=== PATIENT | female | born 1960 | race Caucasian/White ===

== ENCOUNTER 2016-12-13 11:57 | Observation (INO) | payer MEDICAID ==
[~2016-12-13] VITALS: Ht 160 cm; Wt 94.7 kg
[2016-12-13 12:02] VITALS: Ht 160 cm; Wt 94.7 kg
[2016-12-13] MEDS ORDERED: ASPIRIN 325 MG TAB PO STA (12:24)
[2016-12-13] MEDS ORDERED: NITROGLYCERIN (SL) 0.4 MG TAB SL PRN (12:30)
--- NOTE | 2016-12-13 13:02 | RADRPT ---
PROCEDURE: XR Chest. CLINICAL INDICATION: Chest pain. TECHNIQUE: Single frontal view of the chest was obtained. COMPARISON: None. FINDINGS: This is a partially expiratory study. Cardiomediastinal silhouette appears normal Pulmonary vasculature appears normal. There is bibasilar subsegmental atelectasis, right greater than left. Costophrenic angles are well defined. The osseous elements appear intact. IMPRESSION: 1. Bibasilar subsegmental atelectasis partially expiratory study.. 2. No confluent airspace process identified RPTAT: [facility] Physician Marky Date Time Electronically viewed and signed by Physician Marky on 12/13/2016 13:01 /
[2016-12-13 13:05] LABS: ADD SCAN DIFF NO
[2016-12-13 13:06] LABS: BASOPHILS % 0.5 % (0.0-2.0); EOSINOPHILS # 0.1 10^3/ul (0.0-0.5); EOSINOPHILS % 1.7 % (0.0-7.0); HEMATOCRIT 38.2 % (37.0-47.0); HEMOGLOBIN 12.6 g/dl (12.0-16.0); LYMPHOCYTES # 2.4 10^3/ul (0.8-2.9); LYMPHOCYTES % 30.5 % (15.0-51.0); MEAN CORPUSCULAR HEMOGLOBIN 29.6 pg (29.0-33.0); MEAN CORPUSCULAR VOLUME 89.9 fl (82.0-101.0); MEAN PLATELET VOLUME 9.2 fl (7.4-10.4); MONOCYTE # 0.6 10^3/ul (0.3-0.9); NEUTROPHIL # 4.5 10^3/ul (1.6-7.5); NEUTROPHILS % 58.8 % (39.0-77.0); PLATELET COUNT 285 10^3/UL (140-415); RED BLOOD COUNT 4.25 10^6/ul (4.20-5.40); RED CELL DISTRIBUTION WIDTH 12.6 % (11.5-14.5); WHITE BLOOD COUNT 7.7 10^3/ul (4.8-10.8)
[2016-12-13 13:15] LABS: INR 0.98
[2016-12-13 13:16] LABS: PARTIAL THROMBOPLASTIN TIME 24.7 Sec (25.0-35.0)
[2016-12-13 13:18] LABS: D-DIMER 1721.67 ng/ml (<460)
[2016-12-13 13:20] LABS: ALBUMIN 3.9 g/dl (3.3-4.9); CHLORIDE 104 mmol/L (97-110)
[2016-12-13 13:21] LABS: SODIUM 146 mmol/L (135-144)
[2016-12-13 13:23] LABS: ALBUMIN/GLOBULIN RATIO 1.25; ALKALINE PHOSPHATASE 105 IU/L (42-121); ANION GAP 17 (8-16); ASPARTATE AMINO TRANSFERASE 26 IU/L (15-46); BILIRUBIN,INDIRECT 0.7 mg/dl (0-1.1); BILIRUBIN,TOTAL 0.7 mg/dl (0.2-1.3); BLOOD UREA NITROGEN 11 mg/dl (7-20); CARBON DIOXIDE 29 mmol/L (21-31)
[2016-12-13 13:24] LABS: ALANINE AMINOTRANSFERASE 33 IU/L (13-69); CALCIUM 9.2 mg/dl (8.4-10.2); CREATINE KINASE 60 IU/L (23-200); GLUCOSE 133 mg/dl (70-220)
[2016-12-13 13:31] LABS: CK-MB 0.32 ng/ml (0.0-2.4)
[2016-12-13 13:32] LABS: B-TYPE NATRIURETIC PEPTIDE 48 PG/ML (0-125)
[2016-12-13 14:14] LABS: TROPONIN-I < 0.010 ng/ml (0.00-0.12)
[2016-12-13] MEDS ORDERED: ACETAMINOPHEN 325 MG TAB PO PRN (14:30)
[2016-12-13] MEDS ORDERED: ONDANSETRON 4 MG INJ IV PRN ×2 (14:30→18:30)
--- NOTE | 2016-12-13 14:33 | ERA ---
ER Documentation Chief Complaint Date/Time DATE: 12/13/16 TIME: 14:28 Chief Complaint CHEST PAIN RADIATING TO LT ARM X 1 WEEK WITH SOB WHEN LYING DOWN HPI This is a 56-year-old Slovenian-speaking female with no past medical history and no past surgical history that presents to the emergency department complaining of left substernal chest pain that has been intermittent for the past 7 days. The patient indicates that the chest pain will sporadically occur multiple times throughout the day, last for roughly 20 minutes and will also radiate to her left arm. She is right-handed dominant. She denies any numbness or tingling of her left or right upper extremity. She had no associated symptoms of nausea vomiting or diaphoresis. The patient also indicates that when she lies supine she feels short of breath with paroxysmal nocturnal dyspnea. She denies any swelling of her lower extremities. She denies any recent travel or prolonged immobilization. She has no shortness of breath with exertion. ROS All systems reviewed and are negative except as per history of present illness. Medications Home Meds No Active Prescriptions or Reported Meds Allergies Allergies: Coded Allergies: No Known Allergy (Unverified , 12/13/16) PMhx/Soc Hx Alcohol Use: No Hx Substance Use: No Hx Tobacco Use: No Physical Exam Vitals Vital Signs Date Time Temp Pulse Resp B/P Pulse Ox O2 Delivery O2 Flow Rate FiO2 12/13/16 12:02 98.1 97 18 150/73 95 Physical Exam Constitutional:Well-developed. Well-nourished. HEENT:Normocephalic. Atraumatic.Pupils were equal round reactive to light. Moist mucous membranes.No tonsillar exudates. Neck: No nuchal rigidity. No lymphadenopathy. No posterior cervical spine tenderness or step-offs. Respiratory: Not using accessory muscles of respiration.Lungs were clear to auscultation bilaterally. No rhonchi. No rales. No wheezing. Cardiovascular: Regular rate regular rhythm.No murmurs. No rubs were appreciated.S1, S2 normal. Distal pulses are palpable 2+ bilaterally. GI: Abdomen was soft. Nontender. Non Distended. No pulsatile abdominal masses or bruits. No rebound. No guarding. Bowel sounds were present and normal. Muscle skeletal: Full range of motion of both the upper and lower extremities bilaterally.Normal muscle tone.No assymetrical calf tenderness or swelling. Skin: No petechia, no purpura. No lesions on the palms or the soles of the feet. No maculopapular rash. NEURO: Patient was alert, awake, orientated x3.No facial droop. Gait observed and normal with no ataxia.Speech had regular rate and rhythm. No focal neurological deficits. Result Diagram: 12/13/16 1256 12/13/16 1256 Results 24 hrs Laboratory Tests Test 12/13/16 12:56 Activated Partial Thromboplast Time 24.7Sec Alanine Aminotransferase (ALT/SGPT) 33IU/L Albumin 3.9g/dl Albumin/Globulin Ratio 1.25 Alkaline Phosphatase 105IU/L Anion Gap 17 Aspartate Amino Transf (AST/SGOT) 26IU/L B-Type Natriuretic Peptide 48PG/ML Basophils # 0.010^3/ul Basophils % 0.5% Blood Urea Nitrogen 11mg/dl Calcium Level 9.2mg/dl Carbon Dioxide Level 29mmol/L Chloride Level 104mmol/L Creatine Kinase 60IU/L Creatine Kinase Index 0.5 Creatinine 0.70mg/dl Creatinine Kinase MB (Mass) 0.32ng/ml D-Dimer 1721.67ng/ml D-Dimer Comment Direct Bilirubin 0.00mg/dl Eosinophils # 0.110^3/ul Eosinophils % 1.7% Globulin 3.10g/dl Glucose Level 133mg/dl Hematocrit 38.2% Hemoglobin 12.6g/dl INR International Normalized Ratio 0.98 Indirect Bilirubin 0.7mg/dl Lymphocytes # 2.410^3/ul Lymphocytes % 30.5% Mean Corpuscular Hemoglobin 29.6pg Mean Corpuscular Hemoglobin Concent 33.0g/dl Mean Corpuscular Volume 89.9fl Mean Platelet Volume 9.2fl Monocytes # 0.610^3/ul Monocytes % 8.0% Neutrophils # 4.510^3/ul Neutrophils % 58.8% Nucleated Red Blood Cells # 0.010^3/ul Nucleated Red Blood Cells % 0.0/100WBC Platelet Count 00952^3/UL Potassium Level 4.0mmol/L Prothrombin Time 13.0Sec Prothrombin Time Ratio 1.0 Red Blood Count 4.2510^6/ul Red Cell Distribution Width 12.6% Sodium Level 146mmol/L Total Bilirubin 0.7mg/dl Total Protein 7.0g/dl Troponin I < 0.010ng/ml White Blood Count 7.710^3/ul Current Medications Medications (Trade) Dose Ordered Sig/Yessy Route PRN Reason Start Time Stop Time Status Last Admin Dose Admin Aspirin (Aspirin) 325 mg ONCE STAT PO 12/13/16 12:24 12/13/16 12:25 DC 12/13/16 12:52 Nitroglycerin (Nitroglycerin (Sl Tab) 0.4 Mg) 1 tab Q5M UP TO 3 DOSES PRN SL CHEST PAIN 12/13/16 12:30 12/13/16 12:52 Procedures/MDM The patient presented to the emergency department with chest pain. My clinical evaluation and workup was to distinguish minor causes of chest pain from acute life threatening conditions such as myocardial infarction, pulmonary embolism, aortic dissection, esophageal rupture, cardiac tamponade. The patient was placed on a cardiac catheterization technician and continuous pulse oximetry. IV access established by nursing staff. Patient was given 325 mg of aspirin p.o. and sublingual nitroglycerin. 12 Lead EKG tracing ordered and reviewed by myself showed: Normal sinus rhythm of 100 bpm and no arrhythmia. NE interval normal. QRS duration normal. No ST segment elevation No ST segment depression. No changes consistent with acute ischemia. The patient was a low pretest probability according to the well's criteria for pulmonary embolism. I obtained a d-dimer which was elevated and therefore obtained a CT scan of the chest which showed no evidence of a pulmonary embolism. The patient will be admitted for serial 12-lead EKG tracings and cardiac set of enzymes to the hospitalist Dr. Harris. Departure Diagnosis: Primary Impression: Chest pain Qualified Code: R07.9 - Chest pain, unspecified type Condition: Serious AMYJUAN DIXONA Dec 13, 2016 14:32
[2016-12-13] MEDS ORDERED: IOHEXOL 300MG/ML 150 ML BTL ONE (15:02)
[2016-12-13] MEDS ORDERED: SOD CHLORIDE 0.9% 100 ML ONE (15:02)
--- NOTE | 2016-12-13 15:27 | RADRPT ---
PROCEDURE: CT pulmonary angiogram. CLINICAL INDICATION: Chest pain. Shortness of breath. TECHNIQUE: CT scan of the chest and CT pulmonary angiogram was performed on a multi-slice CT [place]. High-resolution thin slice coronal and sagittal imaging was obtained from the axial source imag es. The patient was examined following the uncomplicated intravenous administration of 120 of Omnip aque-300. The images were reviewed on a PACS workstation. Three dimensional reformatting was used as part of interpretation. The total exam CTDI equals 26.5 and the total exam DLP equals 495.17 mGy-c m. COMPARISON: Chest radiograph 12/13/2016 FINDINGS: CT Pulmonary Angiogram: Breathing artifact significant limits evaluation of the pulmonary arteries, particular in the lung b ases. There is no evidence of central pulmonary embolism. There is no evidence of left lumbar pulm onary embolism. The pulmonary arteries are not well visualized distal to these branches. The main pulmonary artery does not appear enlarged. There is no evidence of right heart strain. The aorta is adequately opacified to exclude aneurysm, dissection, or intramural hematoma. Scattere d atherosclerotic calcifications are present without other significant aortic pathology. Incidental note is made of a common origin of the right brachiocephalic and left common carotid arteries, a ty pical variant. CT Chest: There are no enlarged mediastinal, axillary, or hilar lymph nodes. Heart size is at the upper limit s of normal there is no pericardial effusion or pericardial thickening. Breathing artifact significant limits evaluation of the pulmonary parenchyma. There is a small left pleural effusion. There is moderate bibasilar atelectasis. No obvious confluent or lobar infiltra te is seen. Evaluation for pulmonary nodules significantly limited. There is no pneumothorax. The central tracheobronchial tree is patent. Gallstones are identified within the gallbladder. The remainder of the partially imaged subdiaphrag matic contents are grossly within normal limits. Evaluation of the ribs is limited by breathing artifact. The bones are grossly intact. IMPRESSION: 1. Study significant limited by breathing artifact. There is no evidence of central pulmonary embo lism. 2. Atherosclerotic vascular disease without evidence of other aortic pathology. 3. Small left pleural effusion and moderate bibasilar atelectasis. 4. Cholelithiasis. RPTAT: KK .Alli Carnes MD, MD Date Time Electronically viewed and signed by .Alli Carnes MD, MD on 12/13/2016 15:26 .B/
[2016-12-13] MEDS: FUROSEMIDE 20 MG INJ IV SCH (18:33)
[2016-12-13 18:39] VITALS: BP 117/72; PULSE 73; RESP 18
[2016-12-13] MEDS: AZITHROMYCIN 500MG/NS (PMX) 250 ML IVPB SCH (18:55)
[2016-12-13 20:00] VITALS: BP 121/70; RESP 18
[2016-12-13 20:31] VITALS: PULSE 79
[2016-12-13] MEDS: FAMOTIDINE 20 MG TAB PO SCH (21:10)
[2016-12-13] MEDS: DOCUSATE SODIUM 100 MG CAP PO SCH (21:10)
--- NOTE | 2016-12-13 22:56 | RADRPT ---
PROCEDURE: Ultrasound of the bilateral lower extremity venous system. CLINICAL INDICATION: Bilateral leg pain and swelling, deep venous thrombosis TECHNIQUE: Dickens scale with and without compression, color doppler, spectral doppler of the venous system of the bilateral lower extremities was performed. Venous augmentation maneuvers were utilized . COMPARISON: No prior studies are available for comparison. FINDINGS: RIGHT: Common femoral vein: Patent. Superficial femoral vein: Patent. Popliteal vein: Patent. Calf veins: Patent. No soft tissue abnormalities are identified. LEFT: Common femoral vein: Patent. Superficial femoral vein: Patent. Popliteal vein: Patent. Calf veins: Patent. No soft tissue abnormalities are identified. IMPRESSION: No evidence of a deep vein thrombosis within the bilateral lower extremities. RPTAT: AADD .Dinh Anne MD, Date Time Electronically viewed and signed by .Dinh Anne MD, on 12/13/2016 22:56 .B/
[2016-12-14] VITALS (12 sets, daily range): BP systolic 97–128; BP diastolic 54–77; PULSE 69–81; RESP 18–19
[2016-12-14 00:11] LABS: CK-MB 0.35 ng/ml (0.0-2.4)
[2016-12-14 00:14] LABS: TROPONIN-I 0.015 ng/ml (0.00-0.12)
[2016-12-14] MEDS: FUROSEMIDE 20 MG INJ IV SCH ×2 (05:43→17:16)
--- NOTE | 2016-12-14 08:14 | HP ---
DATE OF ADMISSION: 12/13/2016 PRESENTING COMPLAINT: Chest pain. HISTORY OF PRESENTING COMPLAINT: This is a 56-year-old female with basically no medical history, wh o presented to the emergency room with mid substernal sharp pain intermittently over the last couple of days. The pain seems to come and go and radiates to her left upper extremity. There is no diap horesis. No numbness or tingling, but it is associated with shortness of breath, as well as dyspnea on exertion. There is no lower extremity edema. There is no history of blood clots or pulmonary e mbolism. PAST MEDICAL HISTORY: Essentially negative. SURGICAL HISTORY: Negative as well. ALLERGIES: NO KNOWN DRUG ALLERGIES. SOCIAL HISTORY: Denies tobacco, alcohol or illicit drug use. FAMILY HISTORY: Positive for high blood pressure. REVIEW OF SYSTEMS: Denies fever, denies abdominal pain, denies nausea, denies passing out episodes, denies focal deficits, denies headache. All other systems were reviewed and negative. PHYSICAL EXAMINATION: VITAL SIGNS: Temperature 98.1, pulse 97, respirations 18, blood pressure 150/73, saturations 95% on room air. GENERAL: Alert and oriented, in no distress. HEENT: Head is normocephalic. Pupils are equal and reactive. Mucous membranes are moist. NECK: Supple, without adenopathy. CHEST: Clear to auscultation. CARDIOVASCULAR: S1, S2. No murmurs. ABDOMEN: Soft, nontender, nondistended. Normal active bowel sounds. EXTREMITIES: There was no focal neurologic deficit. SKIN: Devoid of rash or jaundice. Radial pulses are equal and regular. PSYCHIATRIC: The patient was calm and cooperative with the exam. LABORATORY VALUES: Basically unremarkable, save for a serum sodium of 146. Of note is that her cre atinine kinase was normal. Her D-dimer was elevated, however, at 1,721, but her first troponin was negative. Hemoglobin and hematocrit were unremarkable and the WBC count was normal as well. In the emergency room she was given aspirin and nitroglycerin. IMAGING: A chest x-ray, which I reviewed, did not show any acute cardiopulmonary abnormalities. EK G showed normal sinus rhythm with a rate of 100 beats per minute, without any ST elevations concerni ng acute ischemia. She undergo a CT angiogram of her chest to rule out a possible PE in the setting of an elevated D-dimer, as well as chest pain associated with shortness of breath, and this has com e back as showing study significantly limited by breathing artifact. No evidence of central pulmona ry embolism, but there is a small effusion, as well as moderate bibasilar atelectasis and chol elithiasis. IMPRESSION: This is a 56-year-old female with no real past medical history, who presents with short ness of breath and CT findings of a small left pleural effusion, as well as bibasilar atelectasis an d is being admitted as follows: 1. Shortness of breath. Rule out mild congestive heart failure exacerbation (newly diagnosed CHF). 2. Elevated D-dimer, for which a pulmonary embolism has been ruled out. Rule out a lower extremity deep venous thrombosis as well. 3. Rule out an acute coronary syndrome. 4. Rule out underlying infection. 5. Rule out bilateral pneumonia, presenting with like atelectasis on CT. PLAN OF CARE: Admit her to telemetry floor and begin investigations to support her admission diagnos es. She would benefit from an echocardiogram. I will commence gentle diuresis and further intervent ions will depend on how she responds to the above measures. Prophylaxis will be with Lovenox and Pe pcid. For further information and clarification, please review the patient's chart and my orders. Evaluation time has been about 45 minutes. Dictated By: EDSON SONG MD, BA/MEEK Conf#: [id number] DID#: [id number]
[2016-12-14 08:27] LABS: ADD SCAN DIFF NO
[2016-12-14] MEDS: FAMOTIDINE 20 MG TAB PO SCH ×2 (08:35→20:33)
[2016-12-14] MEDS: ASPIRIN (EC) 81 MG TAB PO SCH (08:35)
[2016-12-14] MEDS: DOCUSATE SODIUM 100 MG CAP PO SCH ×2 (08:35→20:33)
[2016-12-14] MEDS: ENOXAPARIN 40 MG/0.4 ML SYG SC SCH (08:39)
[2016-12-14 08:40] LABS: POTASSIUM 3.9 mmol/L (3.5-5.1)
[2016-12-14 08:42] LABS: CREATINE KINASE 63 IU/L (23-200)
[2016-12-14 08:43] LABS: CREATININE 0.67 mg/dl (0.44-1.00)
[2016-12-14 08:44] LABS: CALCIUM 9.1 mg/dl (8.4-10.2); CHOL/HDL RATIO 5.7 RATIO; MAGNESIUM 1.9 mg/dl (1.7-2.5)
[2016-12-14 08:53] LABS: CK-MB 0.39 ng/ml (0.0-2.4)
[2016-12-14 09:13] LABS: TROPONIN-I < 0.012 ng/ml (0.00-0.12)
[2016-12-14 09:45] LABS: BASOPHIL # 0.1 10^3/ul (0.0-0.1); BASOPHILS % 0.9 % (0.0-2.0); EOSINOPHILS # 0.2 10^3/ul (0.0-0.5); EOSINOPHILS % 2.9 % (0.0-7.0); HEMATOCRIT 40.2 % (37.0-47.0); HEMOGLOBIN 12.7 g/dl (12.0-16.0); LYMPHOCYTES # 3.1 10^3/ul (0.8-2.9); LYMPHOCYTES % 39.1 % (15.0-51.0); MEAN CORPUSCULAR HEMOGLOBIN 28.7 pg (29.0-33.0); MEAN CORPUSCULAR HGB CONC 31.6 g/dl (32.0-37.0); MEAN PLATELET VOLUME 9.9 fl (7.4-10.4); MONOCYTE # 0.7 10^3/ul (0.3-0.9); MONOCYTES % 8.7 % (0.0-11.0); NEUTROPHIL # 3.8 10^3/ul (1.6-7.5); NEUTROPHILS % 48.1 % (39.0-77.0); PLATELET COUNT 306 10^3/UL (140-415); RED BLOOD COUNT 4.42 10^6/ul (4.20-5.40); RED CELL DISTRIBUTION WIDTH 12.9 % (11.5-14.5)
[2016-12-14] MEDS ORDERED: LEVO25TA53 PO (15:28)
[2016-12-14] MEDS ORDERED: DOCU-216 PO (15:28)
[2016-12-14] MEDS ORDERED: ATOR20TA65 PO (15:28)
[2016-12-14] MEDS ORDERED: POTA8CAP PO (15:28)
[2016-12-14] MEDS ORDERED: FAMO20TA18 PO (15:28)
[2016-12-14] MEDS ORDERED: LEVO750T25 PO (15:28)
[2016-12-14] MEDS ORDERED: ASPI-664 PO (15:28)
[2016-12-14] MEDS ORDERED: FURO20TA3 PO (15:30)
--- NOTE | 2016-12-14 15:34 | PDOCDIS ---
Discharge Instructions DIAGNOSIS Discharge Diagnosis: Bronchitis , Chest Pain CONDITION Patient Condition: Stable HOME CARE INSTRUCTIONS: Diet Instructions: Low Fat /CholesterolSpecial Diet: 1800 Calorie diet ACTIVITY: Activity Restrictions: Slowly Increase Activity Rest between Activity OTHER ORDERS: Other Orders: Followup with your primary doctor within the next 1 week. If you don't have one please let someone know, we can give you resources that may help you pick one. You may also call your insurance company to assign one to you. Review your medication list with your nurse before leaving and if you need new prescriptions please let your nurse know. I may have made changes to your home medications or given you new prescriptions , please let your primary doctor know as well. Stay compliant with your medications and report any side effects to your PCP or pharmacist. Return to the ER if you have any concerns and cannot reach your doctors or call your insurance company, they usually have a nurse that can help you. EDSON SONG. Dec 14, 2016 15:34
[2016-12-14] MEDS: AZITHROMYCIN 500MG/NS (PMX) 250 ML IVPB SCH (18:21)
[2016-12-14] MEDS ORDERED: CEFTRIAXONE 1 GM/50 ML (PMX) 50 ML IVPB SCH (20:00)
[2016-12-14] MEDS ORDERED: ATORVASTATIN 20 MG TAB PO SCH (21:00)
[2016-12-15] VITALS (9 sets, daily range): BP systolic 112–141; BP diastolic 70–82; PULSE 71–92; RESP 18–20
[2016-12-15] MEDS: FUROSEMIDE 20 MG INJ IV SCH (05:58)
[2016-12-15] MEDS ORDERED: LEVOTHYROXINE 25 MCG TAB PO SCH (06:00)
[2016-12-15] MEDS: DOCUSATE SODIUM 100 MG CAP PO SCH (08:28)
[2016-12-15] MEDS: ASPIRIN (EC) 81 MG TAB PO SCH (08:28)
[2016-12-15] MEDS: FAMOTIDINE 20 MG TAB PO SCH (08:28)
[2016-12-15] MEDS: ENOXAPARIN 40 MG/0.4 ML SYG SC SCH (08:32)
[2016-12-15 09:55] LABS: ADD SCAN DIFF NO
[2016-12-15 09:59] LABS: BASOPHIL # 0.1 10^3/ul (0.0-0.1); BASOPHILS % 0.7 % (0.0-2.0); EOSINOPHILS # 0.3 10^3/ul (0.0-0.5); EOSINOPHILS % 3.8 % (0.0-7.0); HEMATOCRIT 43.7 % (37.0-47.0); HEMOGLOBIN 14.1 g/dl (12.0-16.0); LYMPHOCYTES # 2.1 10^3/ul (0.8-2.9); LYMPHOCYTES % 30.2 % (15.0-51.0); MEAN CORPUSCULAR HEMOGLOBIN 28.9 pg (29.0-33.0); MEAN CORPUSCULAR HGB CONC 32.3 g/dl (32.0-37.0); MEAN CORPUSCULAR VOLUME 89.5 fl (82.0-101.0); MEAN PLATELET VOLUME 9.1 fl (7.4-10.4); MONOCYTE # 0.5 10^3/ul (0.3-0.9); MONOCYTES % 7.2 % (0.0-11.0); NEUTROPHILS % 57.8 % (39.0-77.0); PLATELET COUNT 359 10^3/UL (140-415); RED BLOOD COUNT 4.88 10^6/ul (4.20-5.40); RED CELL DISTRIBUTION WIDTH 12.5 % (11.5-14.5); WHITE BLOOD COUNT 6.8 10^3/ul (4.8-10.8)
[2016-12-15 10:13] LABS: CREATININE 0.69 mg/dl (0.44-1.00)
[2016-12-15 10:14] LABS: CALCIUM 9.7 mg/dl (8.4-10.2)
--- NOTE | 2016-12-15 15:40 | RADRPT ---
Echocardiogram Report Patient Name: ZOË PLATT Gender: Female Date: 1960 Study Date: 15-Dec-2016 Cosmetic Sales Advisor: [facility] Location: 522 Ref. Physician: EDSON SONG Quality: Technically Difficult Study Procedures: Transthoracic echocardiogram with complete 2D, M-Mode, and doppler examination. Indications: Chest Pain. 2D/M Mode Doppler Measurement Value Normal Ranges Measurement Value Normal Ranges LVIDd 2D 5.1 3.5 - 5.6 cm AV Peak Jhon 0.8 m/sec LVPWd 2D 1.3 0.6 - 1.1 cm AV Peak PG 2.6 mmHg IVSd 2D 1.3 0.6 - 1.1 cm LVOT Peak Jhon 0.6 m/sec MV E Peak Jhon 0.5 m/sec MV A Peak Jhon 0.7 m/sec MV E/A 0.8 MV Decel Time 182 msec MV Decel Gregg 3 MV E/A 0.8 Findings Left Ventricle: Overall, normal left ventricular systolic function. Not all segments visualized. Normal left ventricular cavity size. Mild concentric left ventricular hypertrophy. Ejection fraction is visually estimated at 55 %. Tissue Doppler/Mitral Doppler indices are consistent with impaired relaxation (Stage I diastolic dysfunction). Right Ventricle: Not well visualized. Left Atrium: The left atrium is normal in size. Right Atrium: Not well visualized. Mitral Valve: Mild mitral leaflet calcification. Trace mitral regurgitation. Aortic Valve: Aortic valve not well visualized. Trileaflet aortic valve. Tricuspid Valve: Tricuspid valve not well visualized. There is trace tricuspid regurgitation. Pulmonic Valve: There is trace pulmonic regurgitation. Pericardium: Normal pericardium with no significant pericardial effusion. Aorta: Normal aortic root. IVC: Normal size and normal respiratory collapse consistent with normal right atrial pressure. Conclusions 1.Overall, normal left ventricular systolic function. Not all segments visualized. Normal left ventricular cavity size. Mild concentric left ventricular hypertrophy. Ejection fraction is visually estimated at 55 %. Tissue Doppler/Mitral Doppler indices are consistent with impaired relaxation (Stage I diastolic dysfunction). 2.Mild mitral leaflet calcification. Trace mitral regurgitation. 3.Aortic valve not well visualized. Trileaflet aortic valve. 4.Tricuspid valve not well visualized. There is trace tricuspid regurgitation. Electronically Signed By: Theodore Aguilar 15-Dec-2016 15:39:45 -0800 Patient Name: ZOË PLATT Study Date: 15-Dec-2016 [id number]
--- NOTE | 2016-12-16 07:18 | DS ---
DATE OF ADMISSION: 12/13/2016 DATE OF DISCHARGE: 12/15/2016 PRESENTING COMPLAINT: Chest pain. ADMISSION DIAGNOSES: 1. Shortness of breath, rule out newly diagnosed congestive heart failure. 2. Elevated D-dimer, status post sepsis normal CT angiogram. 3. Rule out acute coronary syndrome. 4. Rule out underlying infection. 5. Rule out bilateral pneumonia presenting with atelectasis on CAT scan. CONSULTANTS ON THE CASE: None. INTERVENTIONS: The patient first had a chest x-ray when she first came in and it showed bibasilar a telectasis without confluent airspace disease. Lab work also came back positive with a D-dimer of 1 721 and the patient had normal renal function. There was concern for possible thrombus formation. The patient underwent a CT angiogram of the chest. This showed a limited study, but no evidence of central pulmonary embolism. It did show atherosclerosis, a small right pleural effusion, moderate b ibasilar atelectasis, and cholelithiasis without cholecystitis. She also underwent lower extremity Dopplers bilaterally that showed no evidence of DVT within the bilateral lower extremities. She was worked up laboratory lawrence and she was found to have an elevated hemoglobin A1c of 6.3, dyslipidemia with triglyceride level of 150, total cholesterol of 206, a low HDL of 36. Her TSH was elevated at 4.19. At this time, her pain is completely reproducible with palpation on her chest and is exacerb ated by deep inspiration. Hence, the patient's pain is less likely cardiac and more pulmonary lawrence and is thought to be more infectious than due to a ____ condition. Based on that, she was started o n antibiotic therapy, which she has tolerated well. It is my opinion that the patient is stable at this time for outpatient followup as most ____ causes of her shortness of breath has been ruled out and her shortness of breath is improved. However, her 2D echo is still pending. ____ of left-sided effusion, as well as elevated D-dimer, I would like to assess that prior to discharging the patient home. I have explained to the patient and her family and they are in agreement and they understand the plan. However, she is stable at this time. FINAL DIAGNOSES: 1. Acute shortness of breath improved, likely secondary to likely respiratory tract infection, rule out lower respiratory infection based on x-ray findings of atelectasis. 2. Likely respiratory tract infection, rule out lower respiratory infection based on x-ray findings of atelectasis. Improved on antibiotic therapy. We cannot rule out obviously viral cause. 3. Prediabetes with hemoglobin A1c of 6.3 status post education and diet and exercise recommendatio ns. 4. Dyslipidemia. 5. Newly diagnosed hypothyroidism. 6. Elevated D-dimer, for which a pulmonary embolism and lower extremity deep vein thromboses have b een ruled out. DISPOSITION: To home. ACTIVITIES: As tolerated. DIET: Recommended diet, low cholesterol, low fat, 1800 ADA diet. DISCHARGE MEDICATIONS: 1. Aspirin 81 mg p.o. daily. 2. Lipitor 20 mg p.o. at bedtime. 3. Colace 100 p.o. b.i.d. 4. Pepcid 20 mg b.i.d. 5. Lasix 20 mg daily. 6. Potassium 8 mEq daily. 7. Levaquin 750 daily for 7 days. 8. Levothyroxine ____ mg daily. Discharge is pending review of her 2D echocardiogram with normal results. No intervention required. Overall time spent on counseling, speaking with the family, speaking with the patient, discussing th e results and findings have been more than half an hour. I will also review echocardiogram when grayson ilable to give final discharge instructions. Dictated By: EDSON SONG MD BA/NTS Conf#: [id number] DID#: [id number] CC: TRANG HILLMAN MD;*End*
== END 2016-12-15 17:15 | disposition home or self-care (01) ==
LOC: E/R 11:57 → TEL 14:27
PROVIDERS: ADMIT Family Medicine; ATTEND Family Medicine
DX: R06.02 Shortness of breath (principal); E78.5 Hyperlipidemia, unspecified; E03.9 Hypothyroidism, unspecified
CPT/HCPCS: 71010; 71275; 80048; 80053; 80061; 82550; 82553; 83036; 83735; 83880; 84443; 84484; 85025; 85378; 85610; 85730; 93005; 93306; 93923; 96365; 96366; 96372; 96374; 96375; J0456; J0696; J1650; J1940; Q9967; Z7500; Z7502; Z7610; 99217; G0378